=== PATIENT | male | born 1980 | race Hispanic/Latino ===

== ENCOUNTER → 2019-02-19 | Outpatient (CLI) | payer BC | END | disposition home or self-care (01) | LOC: LAB 16:03 | PROVIDERS: ATTEND Nurse Practitioner Family | DX: Z20.2 Contact with and (suspected) exposure to infections with a predominantly sexual mode of transmission (principal) | CPT/HCPCS: 36415; 86592; 86695; 86696 ==

== ENCOUNTER → 2019-02-23 | Outpatient (CLI) | payer BC | END | disposition home or self-care (01) | LOC: LAB 19:38 | PROVIDERS: ATTEND Nurse Practitioner Adult Health | DX: Z20.2 Contact with and (suspected) exposure to infections with a predominantly sexual mode of transmission (principal) | CPT/HCPCS: 87070; 87077; 87186 ==